=== PATIENT | female | born 1955 | race Caucasian/White ===

== ENCOUNTER 2019-03-27 16:12 | Inpatient (IN) | payer OTHER ==
[~2019-03-27] VITALS: Ht 154.9 cm; Wt 47.8 kg
[2019-03-27 18:36] LABS: BASOPHIL % 0.7 % (0-2)
[2019-03-27 18:39] LABS: PLATELET COUNT 405 x10^3mcL (130-400); RED CELL DISTRIBUTION WIDTH 15.6 % (11.5-14.5)
[2019-03-27 18:46] LABS: CALCIUM 9.9 mg/dL (8.5-10.1); CARBON DIOXIDE 27.8 mmol/L (21-32); CHLORIDE SERUM 101 mmol/L (98-107); CREATININE SERUM 0.8 mg/dL (0.6-1.0); GFR1 > 60 mL/min; GLUCOSE SERUM 154 mg/dL (74-106); POTASSIUM SERUM 4.5 mmol/L (3.5-5.1); SODIUM SERUM 138 mmol/L (136-145)
[2019-03-27 18:50] LABS: ALBUMIN 3.6 g/dL (3.4-5.0); ALKALINE PHOSPHATASE 165 U/L (46-116); ALT/SGPT 19 U/L (14-59); AMYLASE 73 U/L (25-115); AST/SGOT 19 U/L (15-37); BILIRUBIN TOTAL 0.5 mg/dL (0.20-1.00); LIPASE 32 IU/L (73-393); TOTAL PROTEIN, SERUM 8.1 g/dL (6.4-8.2)
[2019-03-27] MEDS ORDERED: OMEPRAZOLE20 M4 PO (20:29)
[2019-03-27] MEDS ORDERED: ZESTRIL20 MG PO (20:29)
[2019-03-27] MEDS ORDERED: METFORMIN HCL1000 MG PO (20:29)
[2019-03-27 21:37] LABS: microscopic required? NO
[2019-03-27 21:45] LABS: UA SPECIFIC GRAVITY 1.025 (1.005-1.035); urine erythrocyte NEGATIVE (NEGATIVE)
[2019-03-27 22:08] VITALS: BP 163/75
[2019-03-27 22:14] VITALS: Ht 154.9 cm; Wt 47.8 kg
[2019-03-28 05:33] VITALS: BP 124/59
[2019-03-28 06:27] LABS: BASOPHIL % 0.4 % (0-2); PLATELET COUNT 310 x10^3mcL (130-400)
[2019-03-28 06:53] LABS: CALCIUM 8.3 mg/dL (8.5-10.1); CARBON DIOXIDE 24.2 mmol/L (21-32); CHLORIDE SERUM 108 mmol/L (98-107); CREATININE SERUM 0.7 mg/dL (0.6-1.0); GFR1 > 60 mL/min; GLUCOSE SERUM 118 mg/dL (74-106); MAGNESIUM 1.8 mg/dL (1.8-2.4); PHOSPHOROUS 3.3 mg/dL (2.5-4.9); POTASSIUM SERUM 3.9 mmol/L (3.5-5.1); SODIUM SERUM 140 mmol/L (136-145)
[2019-03-28 07:17] LABS: RED CELL DISTRIBUTION WIDTH 15.7 % (11.5-14.5)
[2019-03-28 09:01] VITALS: BP 111/46
[2019-03-28 16:54] VITALS: BP 104/49
[2019-03-28 19:33] VITALS: BP 112/44
[2019-03-29 05:25] VITALS: BP 102/38
[2019-03-29 06:33] VITALS: BP 128/60
[2019-03-29 06:41] LABS: BASOPHIL % 0.2 % (0-2); PLATELET COUNT 269 x10^3mcL (130-400)
[2019-03-29 06:46] LABS: RED CELL DISTRIBUTION WIDTH 15.6 % (11.5-14.5)
[2019-03-29 07:25] LABS: CALCIUM 8.2 mg/dL (8.5-10.1); CARBON DIOXIDE 25.4 mmol/L (21-32); CHLORIDE SERUM 109 mmol/L (98-107); CREATININE SERUM 0.7 mg/dL (0.6-1.0); GFR1 > 60 mL/min; GLUCOSE SERUM 91 mg/dL (74-106); MAGNESIUM 1.8 mg/dL (1.8-2.4); PHOSPHOROUS 2.4 mg/dL (2.5-4.9); POTASSIUM SERUM 4.1 mmol/L (3.5-5.1); SODIUM SERUM 141 mmol/L (136-145)
[2019-03-29] MEDS ORDERED: FERL PO (08:17)
[2019-03-29] MEDS ORDERED: REGLAN5 M1 PO (08:18)
[2019-03-29] MEDS ORDERED: PROTONIX40 MG PO (08:19)
[2019-03-29 08:29] VITALS: BP 121/49
[2019-03-29 10:15] VITALS: BP 121/49
== END 2019-03-29 11:36 | disposition home or self-care (01) | DRG 391 ==
LOC: ED 16:12 → MU 20:32
PROVIDERS: Emergency Medicine; Internal Medicine Gastroenterology; ADMIT Internal Medicine
PROC: 0DB78ZX Excision of Stomach, Pylorus, Via Natural or Artificial Opening Endoscopic, Diagnostic (ICD-10-PCS; principal; 2019-03-28 12:30)
PROC: 0DD18ZX Extraction of Upper Esophagus, Via Natural or Artificial Opening Endoscopic, Diagnostic (ICD-10-PCS; 2019-03-28 12:30)
DX: K21.0 Gastro-esophageal reflux disease with esophagitis (principal); N17.0 Acute kidney failure with tubular necrosis; E43 Unspecified severe protein-calorie malnutrition; Z68.1 Body mass index [BMI] 19.9 or less, adult; E11.9 Type 2 diabetes mellitus without complications; E86.0 Dehydration; D37.8 Neoplasm of uncertain behavior of other specified digestive organs; I10 Essential (primary) hypertension; Z92.21 Personal history of antineoplastic chemotherapy; Z79.84 Long term (current) use of oral hypoglycemic drugs; Z85.07 Personal history of malignant neoplasm of pancreas; Z85.028 Personal history of other malignant neoplasm of stomach; Z85.118 Personal history of other malignant neoplasm of bronchus and lung
CPT/HCPCS: 43235; 82962; 90658; A9698; C9113; G0378; J0696; J1200; J1610; J1885; J2250; J2310; J2405; J2765; J3010; J3490; J7030; J7042; J7060; Q0092; Q9967